=== PATIENT | male | born 1990 | race Hispanic/Latino ===

== ENCOUNTER 2023-06-11 02:46 | Observation (INO) | payer OTHER ==
[2023-06-11] MEDS ORDERED: ONDANSETRON 4 MG/2 ML VIAL ONE (03:10)
[2023-06-11] MEDS ORDERED: MORPHINE 4 MG/ML SYR ONE (03:11)
[2023-06-11] MEDS ORDERED: KETOROLAC 30 MG/ML INJ ONE (03:11)
[2023-06-11 03:19] LABS: Absolute Lymphocytes (CBC) 2.7 K/uL (0.7-4.9); Hematocrit 47.3 % (39.6-49.0); Lymphocytes % 15.8 % (15.3-44.8); MCV 87.5 fL (80-100); MPV 8.1 fL (7.6-11.3); Platelets 302 thou/uL (152-406)
[2023-06-11 03:36] LABS: Albumin 3.8 g/dL (3.4-5.0); Bilirubin Total 1.1 mg/dL (0.2-1.0); Potassium 3.9 mEq/L (3.5-5.1); Protein, Total 8.1 g/dL (6.4-8.2)
[2023-06-11] MEDS ORDERED: NA CHLORIDE 0.9% 1,000 ML ONE (04:10)
--- NOTE | 2023-06-11 04:41 | ER ---
Nurse's Notes [facility] Name: Gutierrez Engel III Age: 33 yrs Sex: Male : 1990 Arrival Date: 06/11/2023 Time: 02:46 Bed 6 Private MD: Diagnosis: Diverticulitis of large intestine without perforation or abscess without bleeding;Sepsis, unspecified organism Presentation: 06/11 03:04 Chief complaint: Patient states: I have been having abdominal pain since yesterday. ha1 Yesterday I had diarrhea but not today. pain is at left lower quadrant. 03:04 Coronavirus screen: Vaccine status: Patient reports being unvaccinated. Ebola Screen: ha1 No symptoms or risks identified at this time. Initial Sepsis Screen: Does the patient meet any 2 criteria? No. Patient's initial sepsis screen is negative. Does the patient have a suspected source of infection? No. Patient's initial sepsis screen is negative. Risk Assessment: Do you want to hurt yourself or someone else? Patient reports no desire to harm self or others. Onset of symptoms was June 10, 2023. 03:04 Method Of Arrival: Ambulatory ha1 03:04 Acuity: WINIFRED 3 ha1 Triage Assessment: 03:04 General: Appears uncomfortable, Behavior is cooperative. Pain: Complains of pain in ha1 left lower quadrant Pain does not radiate. Pain currently is 10 out of 10 on a pain scale. Quality of pain is described as crampy, throbbing, Pain began gradually, 1 day ago. Neuro: Level of Consciousness is awake, alert, obeys commands, Oriented to person, place, time, situation. Cardiovascular: Capillary refill < 3 seconds Patient's skin is warm and dry. Respiratory: Airway is patent Respiratory effort is even, unlabored, Respiratory pattern is regular, symmetrical. GI: Abdomen is flat, non-distended, Bowel sounds present X 4 quads. Reports lower abdominal pain, cramping, diarrhea. : No signs and/or symptoms were reported regarding the genitourinary system. Derm: Skin is pink, warm \T\ dry. Musculoskeletal: Circulation, motion, and sensation intact. Range of motion: intact in all extremities. Historical: - Allergies: 03:21 Ceclor; ha1 - PMHx: 03:21 None; ha1 - Immunization history:: Adult Immunizations up to date. - Social history:: Smoking status: Patient denies any tobacco usage or history of. Screenin:24 Abuse screen: Denies threats or abuse. Denies injuries from another. Nutritional ha1 screening: No deficits noted. Tuberculosis screening: No symptoms or risk factors identified. 03:31 [facility] ED Fall Risk Assessment (Adult) History of falling in the last 3 months, ha1 including since admission No falls in past 3 months (0 pts) Confusion or Disorientation No (0 pts) Intoxicated or Sedated No (0 pts) Impaired Gait No (0 pts) Mobility Assist Device Used No (0 pt) Altered Elimination No (0 pt) Score/Fall Risk Level 0 - 2 = Low Risk Oriented to surroundings, Maintained a safe environment, Hourly rounding (assess needs \T\ fall precautionary measures) done. Assessment: 03:04 Reassessment: see triage assessment. ha1 03:45 Reassessment: Patient and/or family updated on plan of care and expected duration. Pain ha1 level reassessed. Patient is alert, oriented x 3, equal unlabored respirations, skin warm/dry/pink. pain 4/10 Patient states feeling better. Patient states symptoms have improved. 04:40 Reassessment: Patient and/or family updated on plan of care and expected duration. Pain ha1 level reassessed. Patient is alert, oriented x 3, equal unlabored respirations, skin warm/dry/pink. Patient states feeling better. Patient states symptoms have improved. 05:30 Reassessment: report given to TATIANA Dyson. ha1 05:35 Reassessment: Patient and/or family updated on plan of care and expected duration. Pain ha1 level reassessed. Patient is alert, oriented x 3, equal unlabored respirations, skin warm/dry/pink. pain 4/10 Patient states feeling better. Patient states symptoms have improved. Vital Signs: 03:04 Weight 120.2 kg; Height 6 ft. 2 in. ; ha1 03:10 BP 118 / 81; Pulse 92; Resp 17 S; Temp 98.2(O); Pulse Ox 95% on R/A; ha1 03:45 BP 117 / 84; Pulse 91; Resp 17 S; Pulse Ox 95% on R/A; ha1 04:45 BP 120 / 82; Pulse 81; Resp 17 S; Pulse Ox 96% on R/A; ha1 04:45 BP 120 / 82; Pulse 77; ec2 05:30 BP 117 / 73; Pulse 72; Resp 17 S; Pulse Ox 95% on R/A; ha1 03:04 Body Mass Index 34.02 (120.20 kg, 187.96 cm) ha1 ED Course: 02:49 Patient arrived in ED. [id number] 02:51 Alonzo Del Real MD is Attending Physician. ec2 03:04 Patient has correct armband on for positive identification. Placed in gown. Bed in low ha1 position. Call light in reach. Side rails up X 1. 03:04 Arm band placed on right wrist. ha1 03:10 Inserted saline lock: 20 gauge in right antecubital area, using aseptic technique. ha1 Blood collected. 03:21 Triage completed. ha1 03:32 Door closed. Warm blanket given. Pillow given. ha1 04:06 CT Abd/Pelvis - IV Contrast Only In Process Unspecified. EDMS 04:40 Rl Hills MD is Hospitalizing Provider. ec2 04:40 Inserted saline lock: 20 gauge in left antecubital area, using aseptic technique. Blood ha1 collected. 04:45 Provided Education on: need for admit . ha1 04:45 No provider procedures requiring assistance completed. ha1 04:45 Patient admitted, IV remains in place. ha1 04:46 Lillie Moe, TATIANA is Primary Nurse. ha1 04:46 Blood Culture Adult (2) Sent. ha1 04:46 Lactate w/ 2H reflex if indic. Sent. ha1 04:46 Protime (+inr) Sent. ha1 04:46 Ptt, Activated Sent. ha1 Administered Medications: 03:15 Drug: Ondansetron IVP 4 mg IVP once; over 2 minutes Route: IVP; Site: right antecubital;ha1 03:45 Follow up: Response: No adverse reaction; Marked relief of symptoms ha1 03:18 Drug: Ketorolac IVP 15 mg IVP once Route: IVP; Site: right antecubital; ha1 03:45 Follow up: Response: No adverse reaction; Marked relief of symptoms ha1 03:18 Drug: morphine IVP or IV 4 mg IVP once over 4 mins Route: IVP; Infused Over: 4 mins; ha1 Site: right antecubital; 03:45 Follow up: Response: No adverse reaction; Marked relief of symptoms; Pain is decreased; ha1 RASS: Alert and Calm (0) 04:12 Drug: NS 0.9% IV 1000 ml IV at 1 bolus Per protocol; 1000 mL bolus Route: IV; Rate: 1 ha1 bolus; Site: right antecubital; 05:00 Follow up: Response: No adverse reaction; IV Status: Completed infusion; IV Intake: ha1 1000ml 04:18 Drug: NS 0.9% IV (30 ml/kg) 30 ml/kg IV at bolus once; Sepsis Protocol, minus 1 liter ha1 Route: IV; Rate: bolus; Site: right antecubital; 05:59 Follow up: Response: No adverse reaction; IV Status: Infusion continued; IV Intake: ha1 1500ml 04:57 Drug: Rocephin IV 1 grams IV at calculated rate once; Given slow IV push per pharmacy ha1 instructions Route: IV; Rate: calculated rate; Site: right antecubital; 05:30 Follow up: Response: No adverse reaction; IV Status: Completed infusion ha1 04:57 Drug: metroNIDAZOLE IVPB 500 mg 100 ml IVPB at 200 ml/hr once over 30 mins Volume: 100 ha1 ml; Route: IVPB; Rate: 200 ml/hr; Infused Over: 30 mins; Site: left antecubital; 05:40 Follow up: Response: No adverse reaction; IV Status: Infusion continued ha1 Medication: 03:27 VIS not applicable for this client. ha1 Intake: 05:00 IV: 1000ml; Total: 1000ml. ha1 05:59 IV: 1500ml; Total: 2500ml. ha1 Outcome: 04:41 Decision to Hospitalize by Provider. ec2 04:45 Admitted to Med/surg accompanied by nurse, via wheelchair, room 207, with chart, Report ha1 called to TATIANA Dyson 04:45 Condition: stable 04:45 Instructed on the need for admit, Demonstrated understanding of instructions, 05:56 Patient left the ED. ha1 Signatures: Dispatcher [employer] EDMagaly Barlow [id number] Lillie Moe RN RN ha1 Alonzo Del Real MD MD ec2 Corrections: (The following items were deleted from the chart) 05:01 04:00 Reassessment: Patient and/or family updated on plan of care and expected ha1 duration. Pain level reassessed. Patient is alert, oriented x 3, equal unlabored respirations, skin warm/dry/pink. pain 4/10 Patient states feeling better. Patient states symptoms have improved. ha1
--- NOTE | 2023-06-11 04:41 | EDPHYS ---
Physician Documentation [facility] Name: Gutierrez Engel III Age: 33 yrs Sex: Male : 1990 Arrival Date: 06/11/2023 Time: 02:46 Bed 6 Private MD: ED Physician Alonzo Del Real HPI: 06/11 03:02 This 33 yrs old Male presents to ER via Unassigned with complaints of SEVERE ec2 LEFT SIDE ABD PAIN. 03:02 Patient arrives today for evaluation of left lower quadrant abdominal pain. States that ec2 the pain started yesterday and has been constant. Patient reports no fevers or chills, denies nausea or vomiting. States that he has a couple bouts of diarrhea. Patient reports no urinary complaints, no hematuria. Denies any history of abdominal surgeries, denies any chronic medical problems.. Historical: - Allergies: 03:21 Ceclor; ha1 - PMHx: 03:21 None; ha1 - Immunization history:: Adult Immunizations up to date. - Social history:: Smoking status: Patient denies any tobacco usage or history of. ROS: 03:02 Constitutional: as per hpi ec2 Exam: 03:02 Constitutional: GEN: NAD Head: atraumatic Eyes: EOMI Ears: External ears are ec2 normal. CV: regular rate LUNGS: no respiratory distress ABD: non-distended, soft, tender left lower quadrant, not guarding, not rigid, mild left CVA TTP SKIN: no evidence of rashes MSK: no evidence of trauma NEURO: moves all extremities equally Vital Signs: 03:04 Weight 120.2 kg; Height 6 ft. 2 in. ; ha1 03:10 BP 118 / 81; Pulse 92; Resp 17 S; Temp 98.2(O); Pulse Ox 95% on R/A; ha1 03:45 BP 117 / 84; Pulse 91; Resp 17 S; Pulse Ox 95% on R/A; ha1 04:45 BP 120 / 82; Pulse 81; Resp 17 S; Pulse Ox 96% on R/A; ha1 04:45 BP 120 / 82; Pulse 77; ec2 05:30 BP 117 / 73; Pulse 72; Resp 17 S; Pulse Ox 95% on R/A; ha1 03:04 Body Mass Index 34.02 (120.20 kg, 187.96 cm) ha1 MDM: 02:51 Patient medically screened. ec2 03:02 ED course: Patient arrives today for evaluation of left lower quadrant abdominal pain. ec2 Examination remarkable for abdominal findings as noted above. Will obtain lab work, CT imaging, urine studies. Will treat the patient pain with IV morphine as well as Toradol. Currently considering processes such as diverticulitis, UTI/pyelonephritis, ureteral stone.. 03:39 Data reviewed: vital signs. ED course: CBC shows leukocytosis 17.4, metabolic profile ec2 with appropriate electrolytes, renal dysfunction with a creatinine of 1.42 and a GFR of 68. Lipase within normal ranges. . 04:15 ED course: Patient does meet SIRS criteria with documented heart rate as well as ec2 leukocytosis, I did independently review and interpret the CT of the abdomen pelvis that showed a concern for left lower quadrant infection, some fat stranding noted on the left colon as well as concern for diverticulitis. Will empirically treat with antibiotics for intra-abdominal infection.. 04:45 ED course: Sepsis reassessment completed, patient with improving pulse with most recent ec2 pulse at 70s. Patient reports improvement in symptoms as well.. 05:14 ED course: EKG independently reviewed and interpreted by me, shows normal sinus rhythm, ec2 rate of 71, no acute ST segment elevations, nonconcerning intervals.. 05:15 ED course: Lactic acid reassuring. Patient remains well-appearing and in no acute ec2 distress.. 06/11 03:02 Order name: CBC with Diff; Complete Time: 03:39 ec2 06/11 03:02 Order name: CMP; Complete Time: 03:39 ec2 06/11 03:02 Order name: UAM ec2 06/11 03:02 Order name: Lipase; Complete Time: 03:39 ec2 06/11 04:15 Order name: Blood Culture Adult (2) ec2 06/11 04:15 Order name: Lactate w/ 2H reflex if indic.; Complete Time: 05:15 ec2 06/11 04:15 Order name: Protime (+inr); Complete Time: 05:12 ec2 06/11 04:15 Order name: Ptt, Activated; Complete Time: 05:12 ec2 06/11 05:06 Order name: Basic Metabolic Panel EDMS 06/11 05:06 Order name: Basic Metabolic Panel EDTX 06/11 03:02 Order name: CT Abd/Pelvis - IV Contrast Only ec2 06/11 04:15 Order name: EKG; Complete Time: 04:16 ec2 06/11 04:15 Order name: Accucheck; Complete Time: 04:42 ec2 06/11 04:15 Order name: Cardiac monitoring; Complete Time: 04:42 ec2 06/11 04:15 Order name: EKG - Nurse/Tech; Complete Time: 05:14 ec2 06/11 04:15 Order name: IV Saline Lock - Large Bore; Complete Time: 04:42 ec2 06/11 04:15 Order name: Labs collected and sent; Complete Time: 04:42 ec2 06/11 04:15 Order name: O2 Per Protocol; Complete Time: 04:42 ec2 06/11 04:15 Order name: O2 Sat Monitoring; Complete Time: 04:42 ec2 06/11 04:15 Order name: Vital Signs; Complete Time: 04:42 ec2 Administered Medications: 03:15 Drug: Ondansetron IVP 4 mg IVP once; over 2 minutes Route: IVP; Site: right antecubital;ha1 03:45 Follow up: Response: No adverse reaction; Marked relief of symptoms ha1 03:18 Drug: Ketorolac IVP 15 mg IVP once Route: IVP; Site: right antecubital; ha1 03:45 Follow up: Response: No adverse reaction; Marked relief of symptoms ha1 03:18 Drug: morphine IVP or IV 4 mg IVP once over 4 mins Route: IVP; Infused Over: 4 mins; ha1 Site: right antecubital; 03:45 Follow up: Response: No adverse reaction; Marked relief of symptoms; Pain is decreased; ha1 RASS: Alert and Calm (0) 04:12 Drug: NS 0.9% IV 1000 ml IV at 1 bolus Per protocol; 1000 mL bolus Route: IV; Rate: 1 ha1 bolus; Site: right antecubital; 05:00 Follow up: Response: No adverse reaction; IV Status: Completed infusion; IV Intake: ha1 1000ml 04:18 Drug: NS 0.9% IV (30 ml/kg) 30 ml/kg IV at bolus once; Sepsis Protocol, minus 1 liter ha1 Route: IV; Rate: bolus; Site: right antecubital; 05:59 Follow up: Response: No adverse reaction; IV Status: Infusion continued; IV Intake: ha1 1500ml 04:57 Drug: Rocephin IV 1 grams IV at calculated rate once; Given slow IV push per pharmacy ha1 instructions Route: IV; Rate: calculated rate; Site: right antecubital; 05:30 Follow up: Response: No adverse reaction; IV Status: Completed infusion ha1 04:57 Drug: metroNIDAZOLE IVPB 500 mg 100 ml IVPB at 200 ml/hr once over 30 mins Volume: 100 ha1 ml; Route: IVPB; Rate: 200 ml/hr; Infused Over: 30 mins; Site: left antecubital; 05:40 Follow up: Response: No adverse reaction; IV Status: Infusion continued ha1 Disposition Summary: 06/11/23 04:41 Hospitalization Ordered Notes: Hospitalization Status: Inpatient Admission ec2 Provider: Rl Hills ec2 Location: Telemetry/[facility] (Inpatient) ec2 Condition: Stable ec2 Problem: new ec2 Symptoms: have improved ec2 Bed/Room Type: Standard ec2 Room Assignment: 207(06/11/23 05:23) rv1 Diagnosis - Diverticulitis of large intestine without perforation or abscess without bleeding ec2 - Sepsis, unspecified organism ec2 Forms: - Medication Reconciliation Form ec2 - SBAR form ec2 - Leadership Thank You Letter ec2 Critical care time excluding procedures: 04:52 Critical care time: Bedside Care: 30 minutes, Consultation: 5 minutes. Total time: 35 ec2 minutes Signatures: Dispatcher [employer] EDMS Lillie Moe RN RN 1 Tanna Wynn rv1 Alonzo Del Real MD MD ec2 Corrections: (The following items were deleted from the chart) 04:39 04:15 ED course: Patient does meet SIRS criteria with documented heart rate as well as ec2 leukocytosis, I did independently review and interpret the CT of the abdomen pelvis that showed a concern for left lower quadrant infection, some fat stranding noted on the left colon as well as concern for infection. Will empirically treat with antibiotics for intra-abdominal infection.. ec2 04:46 04:45 ED course: Sepsis reassessment completed, patient with improving pulse with most ec2 recent pulse at 76. Patient reports improvement in symptoms as well.. ec2 05:15 04:08 Frost ordered. ec2 ha1 05:23 04:41 ec2 rv1
[2023-06-11] MEDS ORDERED: CEFTRIAXONE 1000 MG/VIAL ONE (04:45)
[2023-06-11] MEDS ORDERED: METRONIDAZOLE 500mg IVPB 500 MG/100 ML BAG IV ONE (04:45)
[2023-06-11] MEDS ORDERED: NA CHLORIDE 0.9% 2,000 ML ONE (04:48)
[2023-06-11] MEDS ORDERED: ONDANSETRON 4 MG/2 ML VIAL IV PRN (05:02)
--- NOTE | 2023-06-11 05:02 | P.HP ---
Certification for Inpatient Patient admitted to: Observation With expected LOS: <2 Midnights Practitioner: I am a practitioner with admitting privileges, knowledge of patient current condition, hospital course, and medical plan of care. Services: Services provided to patient in accordance with Admission requirements found in Title 42 Section 412.3 of the Code of Federal Regulations Patient History Date of Service: 06/11/23 Reason for admission: Acute diverticulitis. History of Present Illness: 33-year-old male patient who has no significant medical history who came to the ED with complaint of abdominal pain has been going on denied before admission. Reported abdominal pain 8 out of 10 in intensity with associated diarrhea of 1 episode. No nausea, no vomiting no fever no chills. He tried to manage the pain by going to bed however pain worsened overnight so he decided to come to the ED. In the ED had a CT of the abdomen/pelvis done that showed acute diverticulitis so he was admitted for inpatient care. He denied any prior history of autoimmune gastrointestinal issue in family or in himself. Allergies No Known Allergies Allergy (Unverified 10/20/16 01:57) Review of Systems General: Unremarkable Eyes: Unremarkable ENT: Unremarkable Respiratory: Unremarkable Cardiovascular: Unremarkable Gastrointestinal: Abdominal Pain, Diarrhea Genitourinary: Unremarkable Musculoskeletal: Unremarkable Neurological: Unremarkable Lymphatics: Unremarkable Physical Examination - Physical Exam General: Alert, Oriented x3 HEENT: Atraumatic Respiratory: Normal air movement Cardiovascular: Regular rate/rhythm, Normal S1 S2 Gastrointestinal: Tenderness Neurological: Normal speech, Normal strength at 5/5 x4 extr - Studies Laboratory Data (last 24 hrs) 06/11/23 06/11/23 03:13 03:13 WBC 17.40 H Hgb 16.1 Hct 47.3 Plt Count 302 Sodium 136 Potassium 3.9 BUN 12 Creatinine 1.42 H Glucose 117 H Total Bilirubin 1.1 H AST 16 ALT 61 Alkaline Phosphatase 59 Lipase 36 Assessment and Plan - Plan Acute diverticulitis: Imaging study confirmed patient clinical situation. Will have patient continue on ciprofloxacin and Flagyl for management of diverticulitis episode. As needed Tylenol and [place] to be used for pain control per Follow clinical symptomatology. Continue on n.p.o. status pending further review. Acute kidney injury: Creatinine is elevated at 1.5 on initial lab. Will hydrate with isotonic normal saline and follow trend of kidney function. Will avoid nephrotoxins and dose medication for present estimated glomerular filtration. Prophylaxis: Lovenox for DVT prophylax CODE STATUS: Full code. Disposition: We will treat his acute diverticulitis episode and he will be discharged once his deemed clinically stable - Advance Directives Does patient have a Living Will: No Does patient have a Durable POA for Healthcare: No
[2023-06-11] MEDS ORDERED: HYDROCODONE/APAP 5/325 MG TAB PO PRN (05:04)
[2023-06-11 05:07] LABS: Protime INR 1.23
[2023-06-11] MEDS: NA CHLORIDE 0.9% 1,000 ML IV SCH ×4 (06:00→21:00)
[2023-06-11 06:25] VITALS: BMI 36.8
[2023-06-11] MEDS ORDERED: INFLUENZA VACCINE (for 6+ mo) 0.5 ML DOSE IMVAC ONE (08:00)
[2023-06-11] MEDS: METRONIDAZOLE 500mg IVPB 500 MG/100 ML BAG IV SCH ×2 (08:55→16:06)
[2023-06-11] MEDS: CIPROFLOXACIN 400mg IV 400 MG/200 ML BAG IV SCH ×2 (08:57→20:59)
[2023-06-11] MEDS: ENOXAPARIN 40 MG/0.4 ML SQ SCH (08:57)
--- NOTE | 2023-06-11 10:45 | P.PN ---
Subjective Date of Service: 06/11/23 Chief Complaint: Acute diverticulitis. Pt is resting comfortably in bed. HE complains of LLQ abd pain. HE is tolerating iv cipro and flagyl. No other complaints Review of Systems Unremarkable General: Unremarkable Eyes: Unremarkable ENT: Unremarkable Respiratory: Unremarkable Cardiovascular: Unremarkable Gastrointestinal: Abdominal Pain Genitourinary: Unremarkable Musculoskeletal: Unremarkable Integumentary: Unremarkable Neurological: Unremarkable Lymphatics: Unremarkable Physical Examination - Vital Signs Temperature: 100.3 F Blood Pressure: 124/65 Pulse: 89 Respirations: 18 Pulse Ox (%): 97 - Physical Exam General: Alert, In no apparent distress, Oriented x3 HEENT: Atraumatic, Normocephalic Neck: Supple, 2+ carotid pulse no bruit Respiratory: Clear to auscultation bilaterally, Normal air movement Cardiovascular: No edema, Normal pulses, Regular rate/rhythm, Normal S1 S2 Capillary refill: <2 Seconds Gastrointestinal: Normal bowel sounds, Soft and benign, Non-distended, Tenderness Musculoskeletal: No clubbing, No swelling Integumentary: No rashes, No breakdown Neurological: Normal speech, Normal strength at 5/5 x4 extr - Studies Laboratory Data (last 24 hrs) 06/11/23 06/11/23 06/11/23 04:35 03:13 03:13 WBC 17.40 H Hgb 16.1 Hct 47.3 Plt Count 302 PT 13.5 H INR 1.23 APTT 34.6 Sodium 136 Potassium 3.9 BUN 12 Creatinine 1.42 H Glucose 117 H Total Bilirubin 1.1 H AST 16 ALT 61 Alkaline Phosphatase 59 Lipase 36 Assessment And Plan - Plan Acute diverticulitis: Per CT abd/pelvis. Will continue IVF, prn norco, cipro and flagyl. Will follow up blood cx. Pt is NPO. Will start CLD when he wants to eat. Acute kidney injury: Cr is 1.42 <- 1.5. Will continue IVF, avoid nephrotoxins and monitor renal function. DVT prophylaxis: Lovenox. CODE STATUS: Full code. Disposition: Pending hospital course. Discharge Plan: Home Plan to discharge in: 48 Hours - Code Status/Comfort Care Code Status Assessed: Yes Code Status: Full Code
[2023-06-11 13:20] LABS: Specific Gravity > 1.030 (1.005-1.030); Urine Bacteria None Seen /HPF (<20); Urine Bilirubin NEGATIVE (Negative); Urine Blood Negative (Negative); Urine Clarity Clear (Clear); Urine Color Yellow (Yellow); Urine Glucose NEGATIVE (Negative); Urine Mucus 4+ /HPF (None Seen); Urine Protein 1+ (Negative); Urine RBC <5 /HPF (None Seen); Urine Urobilinogen Normal (Normal)
[2023-06-11] MEDS: ACETAMINOPHEN 325 MG TABLET PO PRN (14:08)
--- NOTE | 2023-06-11 15:34 | RAD REPORT ---
EXAM DESCRIPTION: CT - Abdomen Pelvis W Contrast - 06/11/2023 6:31 am CLINICAL HISTORY: 33 years Male; LLQ abd pain; IV ONLY TECHNIQUE: CT of the abdomen and pelvis with intravenous contrast. All CT scans at this facility use dose modulation, iterative reconstruction, and/or weight based dosi ng when appropriate to reduce radiation dose to as low as reasonably achievable. COMPARISON: None. FINDINGS: Lower thorax: Bibasilar atelectasis. Bilateral gynecomastia. Abdomen: Stomach: Within normal limits Liver: No focal lesions. Hepatic steatosis. Enlarged. No intrahepatic ductal distention. Gallbladder: Nondistended Pancreas: Within normal limits Spleen: Within normal limits Right kidney: No hydronephrosis. No focal lesion. Left kidney: No hydronephrosis. No focal lesion. Adrenal glands: Within normal limits Vascular structures: Within normal limits Nodes: No lymphadenopathy by size criteria Pelvis: Small bowel: No significant distention. Appendix: Within normal limits Colon: Sigmoid colonic diverticulosis with wall thickening and surrounding stranding. Peritoneum: Small volume of free fluid in the left lower abdomen. No free air. Bones: No acute bone findings. Bladder: Under distended, limiting evaluation. Reproductive organs: No acute findings. IMPRESSION: 1. Acute sigmoid colonic diverticulitis. Small volume of free fluid in the left lower abdomen. No free air. 2. Hepatomegaly with hepatic steatosis. Electronically signed by: Sergio Lindsay MD 06/11/2023 04:26 AM CNA INSTRUCTOR Due to temporary technical issues with the PACS/Fluency reporting system, reports are being signed by the in house radiologist without review as a courtesy to ensure prompt reporting. The interpreting r adiologist is fully responsible for the content of the report.
[2023-06-11 23:27] VITALS: O2SAT 94
[2023-06-12] MEDS: METRONIDAZOLE 500mg IVPB 500 MG/100 ML BAG IV SCH (00:36)
[2023-06-12] MEDS: ACETAMINOPHEN 325 MG TABLET PO PRN (04:02)
[2023-06-12 07:33] LABS: Absolute Lymphocytes (CBC) 2.1 K/uL (0.7-4.9); Hematocrit 37.8 % (39.6-49.0); Lymphocytes % 13.8 % (15.3-44.8); MPV 7.7 fL (7.6-11.3); Platelets 213 thou/uL (152-406); RBC Red Blood Cell Count 4.35 M/uL (4.33-5.43)
[2023-06-12 07:46] LABS: Potassium 3.4 mEq/L (3.5-5.1)
[2023-06-12] MEDS: ENOXAPARIN 40 MG/0.4 ML SQ SCH (08:11)
[2023-06-12] MEDS: PIPER TAZO 3.375 GM in NA CHLORIDE 0.9% 100 ML IV SCH ×2 (08:19→17:03)
--- NOTE | 2023-06-12 09:48 | P.PN ---
Subjective Date of Service: 06/12/23 Chief Complaint: Acute diverticulitis. Pt is resting comfortably in bed. He complains of LLQ abd pain. Pt had fever last night. Will change iv cipro and flagyl to zosyn. No other complaints Review of Systems Unremarkable General: Unremarkable Eyes: Unremarkable ENT: Unremarkable Respiratory: Unremarkable Cardiovascular: Unremarkable Gastrointestinal: Abdominal Pain Genitourinary: Unremarkable Musculoskeletal: Unremarkable Integumentary: Unremarkable Neurological: Unremarkable Lymphatics: Unremarkable Physical Examination - Vital Signs Temperature: 97.1 F Blood Pressure: 116/69 Pulse: 88 Respirations: 16 Pulse Ox (%): 95 - Physical Exam General: Alert, In no apparent distress, Oriented x3 HEENT: Atraumatic, Normocephalic, PERRLA Neck: Supple, 2+ carotid pulse no bruit Respiratory: Clear to auscultation bilaterally, Normal air movement Cardiovascular: No edema, Normal pulses, Regular rate/rhythm, Normal S1 S2 Capillary refill: <2 Seconds Gastrointestinal: Normal bowel sounds, Soft and benign, Non-distended, Tende rness Musculoskeletal: No clubbing, No swelling Integumentary: No rashes, No breakdown Neurological: Normal speech, Normal strength at 5/5 x4 extr, Normal tone, Sensation intact Assessment And Plan - Plan Acute diverticulitis: Per CT abd/pelvis. Will continue IVF, prn norco, and Zosyn. off cipro and flagyl due to recent fever. Will follow up blood cx. Will start CLD today. WBC is trending down 17 -> 15.4. Hypokalemia: K is 3.4. Will replete and monitor. Acute kidney injury: Cr is 1.17<- 1.42 <- 1.5. Will continue IVF, avoid nephrotoxins and monitor renal function. Morbid Obesity: Pt was advised to lose weight. DVT prophylaxis: Lovenox. CODE STATUS: Full code. Disposition: Pending hospital course.
[2023-06-12] MEDS: KCL 20 MEQ/100 mL IVPB 100 ML IV SCH ×2 (10:19→12:19)
[2023-06-12] MEDS: NA CHLORIDE 0.9% 1,000 ML IV SCH ×2 (12:19→20:01)
[2023-06-13] MEDS: PIPER TAZO 3.375 GM in NA CHLORIDE 0.9% 100 ML IV SCH ×2 (00:40→08:17)
[2023-06-13 07:32] LABS: Absolute Lymphocytes (CBC) 1.5 K/uL (0.7-4.9); Hematocrit 39.9 % (39.6-49.0); Lymphocytes % 13.2 % (15.3-44.8); MCV 87.2 fL (80-100); MPV 7.8 fL (7.6-11.3); Platelets 219 thou/uL (152-406); RBC Red Blood Cell Count 4.57 M/uL (4.33-5.43)
[2023-06-13 07:44] LABS: Potassium 3.4 mEq/L (3.5-5.1)
[2023-06-13 08:04] VITALS: BP 119/80; TEMP 98
[2023-06-13] MEDS: ENOXAPARIN 40 MG/0.4 ML SQ SCH (08:17)
[2023-06-13] MEDS: NA CHLORIDE 0.9% 1,000 ML IV SCH (08:17)
--- NOTE | 2023-06-13 10:36 | P.DS ---
Admission Date: 06/11/23 Discharge Date: 06/13/23 Reason for Admission: Acute diverticulitis. - Problems (1) Acute diverticulitis Status: Acute (2) Tobacco dependence Status: Acute Brief History of Present Illness: Reason for admission: Acute diverticulitis. History of Present Illness: 33-year-old male patient who has no significant medical history who came to the ED with complaint of abdominal pain has been going on denied before admission. Reported abdominal pain 8 out of 10 in intensity with associated diarrhea of 1 episode. No nausea, no vomiting no fever no chills. He tried to manage the pain by going to bed however pain worsened overnight so he decided to come to the ED. In the ED had a CT of the abdomen/pelvis done that showed acute diverticulitis so he was admitted for inpatient care. He denied any prior history of autoimmune gastrointestinal issue in family or in himself. Hospital Course: Mr. Engel is a pleasant 33-year-old male patient with no past medical history ] who was admitted to the [facility] on 06/11/2023 for acute diverticulitis.Patient was admitted to the hospital started on IV antibiotics, analgesics as needed and IV hydration. On 06/13/2023, patient was seen on morning rounds and deemed medically stable for discharge. Patient was discharged with instructions to schedule follow-up appointments with PCP in 3 to 5 days. Patient was provided prescriptions for Cipro 500 mg p.o. twice daily for 8 days, Flagyl 500 mg p.o. 3 times daily for 8 days.. Discussed cessation of tobacco use. The patient was given the opportunity to ask questions and reported no further questions. . 1. Please call and schedule a follow-up appointment with your PCP in 3-5 days - Please follow-up with your PCP for medication refills/adjustments -Please call if any questions regarding hospital stay -Please call nursing station at [phone] if any nursing or medication questions -Return to the emergency room if symptoms worsen. <Juan C Jacques - Last Filed: 06/13/23 10:39> Admission Date: 06/11/23 Discharge Date: 06/14/23 Hospital Course: Pt seen and examined. I agree with the note by the ACCOUNTING SUPERVISOR. Ok to discharge pt with cipro and flagyl <Denys Hamm - Last Filed: 06/14/23 09:48> Disposition: ROUTINE DISCHARGE Discharge Condition: GOOD Vital Signs/Physical Exam: Temp Pulse Resp BP Pulse Ox 98 F 78 14 119/80 97 06/13/23 08:00 06/13/23 08:00 06/13/23 08:00 06/13/23 08:00 06/13/23 08:00 General: Alert, Oriented x3 HEENT: Atraumatic, Normocephalic Neck: Supple, 2+ carotid pulse no bruit Respiratory: Clear to auscultation bilaterally, Normal air movement Cardiovascular: No edema, Regular rate/rhythm Capillary refill: <2 Seconds Gastrointestinal: Normal bowel sounds, Soft and benign Musculoskeletal: No clubbing, No swelling Integumentary: No rashes, No breakdown Neurological: Normal gait, Normal speech Laboratory Data at Discharge: WBC 11.10 thou/uL (4.3-10.9) H 06/13/23 07:23 Hgb 13.8 g/dL (13.6-17.9) 06/13/23 07:23 Hct 39.9 % (39.6-49.0) 06/13/23 07:23 Plt Count 219 thou/uL (152-406) 06/13/23 07:23 PT 13.5 SECONDS (9.5-12.5) H 06/11/23 04:35 INR 1.23 06/11/23 04:35 APTT 34.6 SECONDS (24.3-36.9) 06/11/23 04:35 Sodium 136 mEq/L (136-145) 06/13/23 07:23 Potassium 3.4 mEq/L (3.5-5.1) L 06/13/23 07:23 BUN 7 mg/dL (7-18) 06/13/23 07:23 Creatinine 1.02 mg/dL (0.70-1.30) 06/13/23 07:23 Glucose 100 mg/dL (74-106) 06/13/23 07:23 Total Bilirubin 1.1 mg/dL (0.2-1.0) H 06/11/23 03:13 AST 16 U/L (15-37) 06/11/23 03:13 ALT 61 U/L (16-61) 06/11/23 03:13 Alkaline Phosphatase 59 U/L (45-117) 06/11/23 03:13 Lipase 36 U/L (13-75) 06/11/23 03:13 <Jua nC Jacques - Last Filed: 06/13/23 10:39> Vital Signs/Physical Exam: Temp Pulse Resp BP Pulse Ox 98 F 78 14 119/80 97 06/13/23 08:00 06/13/23 08:00 06/13/23 08:00 06/13/23 08:00 06/13/23 08:00 Laboratory Data at Discharge: WBC 11.10 thou/uL (4.3-10.9) H 06/13/23 07:23 Hgb 13.8 g/dL (13.6-17.9) 06/13/23 07:23 Hct 39.9 % (39.6-49.0) 06/13/23 07:23 Plt Count 219 thou/uL (152-406) 06/13/23 07:23 PT 13.5 SECONDS (9.5-12.5) H 06/11/23 04:35 INR 1.23 06/11/23 04:35 APTT 34.6 SECONDS (24.3-36.9) 06/11/23 04:35 Sodium 136 mEq/L (136-145) 06/13/23 07:23 Potassium 3.4 mEq/L (3.5-5.1) L 06/13/23 07:23 BUN 7 mg/dL (7-18) 06/13/23 07:23 Creatinine 1.02 mg/dL (0.70-1.30) 06/13/23 07:23 Glucose 100 mg/dL (74-106) 06/13/23 07:23 Total Bilirubin 1.1 mg/dL (0.2-1.0) H 06/11/23 03:13 AST 16 U/L (15-37) 06/11/23 03:13 ALT 61 U/L (16-61) 06/11/23 03:13 Alkaline Phosphatase 59 U/L (45-117) 06/11/23 03:13 Lipase 36 U/L (13-75) 06/11/23 03:13 <Denys Hamm - Last Filed: 06/14/23 09:48> Diet: Regular Activity: Ad fabi Physician Review: Patient Assessed, Agree with Above Assessment and Plan Time spent managing pt's care (in minutes): 55 (minutes) <Juan C Jacques - Last Filed: 06/13/23 10:39> <Denys Hamm - Last Filed: 06/14/23 09:48> Home Medications: Ciprofloxacin HCl [Cipro 500 MG Tablet] 500 mg PO BID 8 Days #16 tab 06/13/23 Metronidazole 500 mg PO TID 8 Days #24 tab 06/13/23 New Medications: Ciprofloxacin HCl [Cipro 500 MG Tablet] 500 mg PO BID 8 Days #16 tab Metronidazole 500 mg PO TID 8 Days #24 tab Physician Discharge Instructions: Mr. Engel is a pleasant 33-year-old male patient with no past medical history ] who was admitted to the [facility] on 06/11/2023 for acute diverticulitis. Patient was admitted to the hospital started on IV antibiotics, analgesics as needed and IV hydration. On 06/13/2023, patient was seen on morning rounds and deemed medically stable for discharge. Patient was discharged with instructions to schedule follow-up appointments with PCP in 3 to 5 days. Patient was provided prescriptions for Cipro 500 mg p.o. twice daily for 8 days, Flagyl 500 mg p.o. 3 times daily for 8 days.. Discussed cessation of tobacco use. The patient was given the opportunity to ask questions and reported no further questions. . 1. Please call and schedule a follow-up appointment with your PCP in 3-5 days - Please follow-up with your PCP for medication refills/adjustments -Please call if any questions regarding hospital stay -Please call nursing station at [phone] if any nursing or medication questions -Return to the emergency room if symptoms worsen.
--- NOTE | 2023-06-15 17:10 | EKG ---
Test Date: 2023-06-11 Test Time: 05:12:25 Laboratory Worker: KAYKAY MEASUREMENT RESULTS: Intervals: Rate: 71 SD: 160 QRSD: 100 QT: 394 QTc: 428 [place]: P: 38 SD: 160 QRS: 6 T: 3 INTERPRETIVE STATEMENTS: Normal sinus rhythm Normal ECG No previous ECG available for comparison Electronically Signed On 06-15-23 16:56:59 CD MIXER by Irwin Mccabe
== END 2023-06-13 11:25 | disposition home or self-care (01) ==
LOC: ER 02:46 → 2ND 05:02
PROVIDERS: ADMIT Internal Medicine Nephrology; ATTEND Hospitalist
DX: K57.92 Diverticulitis of intestine, part unspecified, without perforation or abscess without bleeding (principal); N17.9 Acute kidney failure, unspecified; F17.210 Nicotine dependence, cigarettes, uncomplicated; Z88.1 Allergy status to other antibiotic agents
CPT/HCPCS: 93005; 87040 ×2; 85025 ×3; 81001; 80048 ×2; 36415 ×3; 85610; 83605; 85730; 83690; 80053; 74177; 99285; Q9967; J3480 ×2; J2543 ×4; J1650 ×3; J2405; J0744 ×2; J7030 ×7; J0696; G0378